=== PATIENT | male | born 1935 | race African-American/Black ===

== ENCOUNTER 2020-07-11 13:23 | Inpatient (IN) | payer MEDICARE, OTHER ==
[~2020-07-11] VITALS: Ht 167.6 cm; Wt 73.9 kg
[2020-07-11] MEDS ORDERED: CEFTRIAXONE 1 G in IV DEXTROSE 5% 50 ML IV ONE (13:45)
[2020-07-11] MEDS ORDERED: DEXAMETHASONE SOD PHOSPHATE 4 MG INJ IV ONE (13:45)
[2020-07-11] MEDS ORDERED: AZITHROMYCIN IV 500 MG in IV DEXTROSE 5% 250 ML IV ONE (13:45)
[2020-07-11 13:55] LABS: ABG SITE LEFT RADIAL
[2020-07-11] MEDS ORDERED: CEFTRIAXONE /D5W 50ML IVPB **ER PYXIS IV ONE (14:06)
[2020-07-11] MEDS ORDERED: AZITHROMYCIN 500 MG VIAL IV ONE (14:06)
[2020-07-11] MEDS ORDERED: DEXAMETHASONE SOD PHOSPHATE 4 MG INJ ONE (14:06)
[2020-07-11 14:07] LABS: BASOPHILS % (AUTO) 0.2 % (0.0-2.0); HEMATOCRIT 33.1 % (36.7-47.1); HEMOGLOBIN 10.4 g/dL (12.5-16.3); LYMPHOCYTES # (AUTO) 0.2 K/uL (20.0-40.0); LYMPHOCYTES % (AUTO) 1.4 % (20.5-51.5); MEAN CORPUSCULAR HEMOGLOBIN 28.2 uug (23.8-33.4); MEAN CORPUSCULAR HGB CONC 31 g/dL (32.5-36.3); MEAN CORPUSCULAR VOLUME 90.2 fL (73.0-96.2); MONOCYTES # (AUTO) 0.6 K/uL (2.0-10.0); MONOCYTES % (AUTO) 4.7 % (0.0-11.0); NEUTROPHILS # (AUTO) 11.9 K/uL (1.8-8.9); NEUTROPHILS % (AUTO) 93.7 % (38.5-71.5); PLATELET COUNT (AUTO) 120 K/uL (152-348); RED BLOOD CELL COUNT(AUTO) 3.67 MIL/uL (4.06-5.63); WHITE BLOOD COUNT (AUTO) 12.8 K/uL (3.6-10.2)
[2020-07-11 14:33] LABS: CHLORIDE 106 mmol/L (98-107); POTASSIUM 4.5 mmol/L (3.5-5.1)
[2020-07-11 14:34] LABS: CARBON DIOXIDE 19 mmol/L (21-32)
[2020-07-11 14:37] LABS: GLUCOSE 126 mg/dL (74-106)
[2020-07-11 14:38] LABS: CREATININE 3.8 mg/dL (0.6-1.3)
[2020-07-11 14:39] LABS: ALANINE AMINOTRANSFERASE 62 U/L (16-63); ALKALINE PHOSPHATASE 77 U/L (50-136); ASPARTATE AMINOTRANSFERASE 53 U/L (15-37); BILIRUBIN,TOTAL 0.9 mg/dL (0.2-1.0)
[2020-07-11 14:40] LABS: LACTATE DEHYDROGENASE 226 U/L (85-227)
[2020-07-11] MEDS ORDERED: MULT-213 PO (14:40)
[2020-07-11] MEDS ORDERED: BISA10SU61 RC (14:40)
[2020-07-11] MEDS ORDERED: MAGN400O6 PO (14:40)
[2020-07-11] MEDS ORDERED: NA P133E RC (14:40)
[2020-07-11] MEDS ORDERED: BISA-79 PO (14:40)
[2020-07-11] MEDS ORDERED: APIX2.5T PO (14:40)
[2020-07-11] MEDS ORDERED: MAG-151 PO (14:40)
[2020-07-11] MEDS ORDERED: FURO40TA5 PO (14:40)
[2020-07-11] MEDS ORDERED: ONDA4TAB5 PO (14:40)
[2020-07-11] MEDS ORDERED: PANT40TA49 PO (14:40)
[2020-07-11] MEDS ORDERED: ACET-2154 PO (14:40)
[2020-07-11] MEDS ORDERED: ASCO500T10 PO (14:40)
[2020-07-11] MEDS ORDERED: CRAN3875 PO (14:40)
[2020-07-11] MEDS ORDERED: SPIR25TA PO (14:40)
[2020-07-11] MEDS ORDERED: FERR325T28 PO (14:40)
[2020-07-11] MEDS ORDERED: [UNRECOGNIZED DRUG - OTHER] PO (14:40)
[2020-07-11] MEDS ORDERED: CHOL10002 PO (14:40)
[2020-07-11 14:41] LABS: UREA NITROGEN, BLOOD 81 mg/dL (7-18)
[2020-07-11] MEDS ORDERED: IV NORMAL SALINE 1000 ML BAG IV ONE (14:45)
[2020-07-11 14:48] LABS: FERRITIN 182 ng/mL (26-388); TOTAL PROTEIN, SERUM 6.5 g/dL (6.4-8.2)
[2020-07-11 15:11] LABS: CREATINE KINASE, TOTAL 266 U/L (39-308)
--- NOTE | 2020-07-11 15:52 | NUR ---
eye balling pt in isolation multiple times. pt moving all extremeties, does not appear to be in resp distress. pt still on non-rebreather, pt on monitor.
--- NOTE | 2020-07-11 15:55 | NUR ---
Dr. Hoff accepted the as icu status. transfer to floor pending on bed availability. clinic supervisor aware.
[2020-07-11] MEDS ORDERED: IV 1/2NS 1000 ML 1,000 ML IV PRN ×2 (16:45→20:33)
[2020-07-11] MEDS ORDERED: HYDROCODONE/APAP 5-325MG TABLET PO PRN (16:45)
[2020-07-11] MEDS ORDERED: Z GUARD REMEDY PASTE 57 GM TUBE TOP PRN (16:45)
[2020-07-11] MEDS ORDERED: ONDANSETRON 4 MG/2 ML VIAL IV PRN (16:45)
[2020-07-11] MEDS ORDERED: MAGNESIUM HYDROXIDE 30 ML LIQUID UDC PO PRN (16:45)
[2020-07-11] MEDS ORDERED: ACETAMINOPHEN 325 MG TABLET PO PRN (16:45)
--- NOTE | 2020-07-11 17:30 | NUR ---
Pt transferred from 3, noted saturation to not improve despite of being on 15L02 via NRB mask and vapotherm at 40L/min at 100% fi02.
[2020-07-11] MEDS ORDERED: NOREPINEPHRINE BITARTRATE 8 MG in IV NORMAL SALINE 242 ML IV PRN (18:00)
[2020-07-11 18:09] LABS: ABG BASE EXCESS -11.4 mmol/L; ABG HCO3 14.1 mmol/L; ABG PCO2 30.1 mmHg (35.0-45.0); ABG PH 7.287 (7.350-7.450); ABG PO2 42.9 mmHg (75.0-100.0); ABG TOTAL HEMOGLOBIN 10.6 G/dL (13.5-18.0); COHb 0.8 % (0.5-1.5); MetHb 0.5 % (0.0-1.5); O2Hb 76.4 % (94.0-97.0); VENT MODE VAPOTHERM
--- NOTE | 2020-07-11 18:20 | NUR ---
Etomidate 20mg given by Dr. Rausch prior to intubation.
--- NOTE | 2020-07-11 18:25 | NUR ---
Pt intubated by Dr. Rausch, ETT size 7.0. Addendum: 07/11/20 at 1855 by MITCHEL ETT tube 25cm at the lip
--- NOTE | 2020-07-11 18:26 | NUR ---
Attached to Vent by RT Wells with vent settings of VT 500, RR 20, PEEP 10 and fi02 100%. Addendum: 07/11/20 at 1843 by MITCHEL RT Thomson also at bedside.
--- NOTE | 2020-07-11 18:30 | NUR ---
PT ORALLY INTUBATED BY WITH A SIZE 7.0 ETT SECURED WITH ANCHOR-FAST APPROX. 24CM AT THE LIP. PT PLACED ON A GAITAN VENT ON SETTINGS GIVEN BY DR. VIGIL. PT IS ON SETTINGS OF A/C 20, VT 500, 100% FIO2, PEEP +10. PT IS TACHYPNEIC, SPO2 63%, RN AND IS AWARE. VENT PARAMETERS AND ALARMS CHECKED, ALARMS ARE AUDIBLE. BVM AT BEDSIDE. VENT PLUGGED INTO RED OUTLET. SPUTUM SPECIMEN COLLECTED. WILL CONTINUE TO MONITOR.
[2020-07-11] MEDS ORDERED: PROPOFOL 100 ML ONE (18:46)
--- NOTE | 2020-07-11 19:00 | NUR ---
Received report from JANEEN Barroso for continuation of care. Patient currently on the ventilator, and seems to be fighting with the vent. Patient restrained to prevent dislodge of ETT, and propofol increased to help sedate patient to promote proper oxygenation.
--- NOTE | 2020-07-11 19:14 | NUR ---
SBAR report given to Sarwat VERNON
[2020-07-11] MEDS ORDERED: ACETAMINOPHEN 325 MG SUPP ONE (20:43)
[2020-07-11] MEDS ORDERED: FUROSEMIDE 40 MG/4 ML VIAL IV ONE (20:45)
[2020-07-11] MEDS ORDERED: ACETAMINOPHEN 650 MG SUPP.RECT RC ONE (20:45)
[2020-07-11] MEDS ORDERED: MORPHINE SULFATE 2 MG/1 ML DISP.SYRIN IV PRN (20:45)
--- NOTE | 2020-07-11 21:03 | NUR ---
Dr. Kilo barnes. Addendum: 07/11/20 at [email or web address] Mota
[2020-07-11] MEDS ORDERED: ENOXAPARIN SODIUM 80 MG/0.8 ML DISP.SYRIN SQ ONE ×2 (21:15→21:28)
[2020-07-11] MEDS ORDERED: FUROSEMIDE 40 MG/4 ML VIAL ONE (21:28)
--- NOTE | 2020-07-11 22:09 | NUR ---
ABG results were provided by RT Arpit. Based on results patients seemed to be getting more acidotic. Dr. Vieira updated with results. Patient resp rate increased to 24.
[2020-07-11 22:17] LABS: ABG BASE EXCESS -13.4 mmol/L; ABG HCO3 15.8 mmol/L; ABG PCO2 50.3 mmHg (35.0-45.0); ABG PH 7.114 (7.350-7.450); ABG PO2 53.2 mmHg (75.0-100.0); ABG SITE LEFT RADIAL; ABG TOTAL HEMOGLOBIN 11.7 G/dL (13.5-18.0); COHb 0.7 % (0.5-1.5); MetHb 0.5 % (0.0-1.5); O2Hb 81.7 % (94.0-97.0); VENT MODE VENT - A/C; VT, ABG 500 mL
--- NOTE | 2020-07-11 22:17 | NUR ---
Dr. Vieira updated with most recent ABG
--- NOTE | 2020-07-11 22:43 | NUR ---
Dr. Mayorga from Medicine updated regarding patient status with new ABG results. Per Dr. Mayorga, patient will need another ABG to be collected 0600 tomorrow.
[2020-07-11] MEDS ORDERED: SODIUM BICARBONATE 8.4% 100 MEQ in IV 1/2NS 1000 ML 1,000 ML IV PRN (23:15)
[2020-07-12] MEDS ORDERED: NOREPINEPHRINE BITARTRATE 4 MG/4 ML VIAL IV ONE ×3 (00:30→06:58)
[2020-07-12] MEDS ORDERED: PROPOFOL 100 ML ONE (00:41)
--- NOTE | 2020-07-12 01:13 | NUR ---
Spoke to Ansley Arango NP regarding patient case. Per Ansley Arango, increase vent rate from 24-26. Observe the patient for about an hour and if patient remains in the same state to start bicarb 2.4 IV drip.
[2020-07-12] MEDS ORDERED: SODIUM BICARBONATE 8.4% 50 MEQ/50 ML DISP.SYRIN IV ONE ×3 (02:19→06:17)
[2020-07-12] MEDS ORDERED: SODIUM BICARBONATE INFANT 5 MEQ/10 ML IV ONE (02:21)
[2020-07-12] MEDS ORDERED: DISP SYRIN IV ONE (02:21)
--- NOTE | 2020-07-12 02:50 | NUR ---
Patient vent settings remain the same, T/V 500, PEEP 15, and rate was increased to 26 per Ansley Arango NP order.
--- NOTE | 2020-07-12 02:50 | NUR ---
Ansley Arango, [employer] SUPERVISOR paged for advice regarding patient condition. Patient saturationn going below 85%. Ansley suggests that if the patient does not progress, he may need to be started on a bicarb drip of 4.2% in D5W and is to be ran at 25ml/hr for 12 hours.
--- NOTE | 2020-07-12 03:50 | NUR ---
Patients blood pressure had a significant drop from 106/54 to 81/48. Levophed titrated up to 1mcg/kg
[2020-07-12] MEDS ORDERED: PROPOFOL 1,000 MG/100 ML BOTTLE IV ONE (06:15)
[2020-07-12] MEDS ORDERED: PANTOPRAZOLE SODIUM 40 MG TABLET.DR PO SCH (07:00)
--- NOTE | 2020-07-12 07:10 | NUR ---
Handoff report given to JANEEN Swenson for continuation of care. Vent settings remain unchanged at T/V 500 PEEP 15 Rate 26. All fluids infusing well.
--- NOTE | 2020-07-12 07:18 | NUR ---
upon assessment patient with no pulse, aware, TOD 07:11
--- NOTE | 2020-07-12 07:42 | NUR ---
main doctor and family (son) notified of patients
--- NOTE | 2020-07-12 07:42 | NUR ---
called [facility] #[id number]
--- NOTE | 2020-07-12 08:17 | NUR ---
[facility] REP. JEREMY CALLED TO VERIFY PT's HEALTH HISTORY INFORMATION. JEREMY CONFIRMED THAT PT IS NOT GOING TO BE [employer]. REFERAL # [id number]. JANEEN ALEJANDRO NOTIFIED.
[2020-07-12] MEDS ORDERED: ASPIRIN 81 MG TAB.CHEW PO SCH (09:00)
--- NOTE | 2020-07-12 09:07 | NUR ---
Dr. Solis to sign certificate
--- NOTE | 2020-07-12 09:28 | NUR ---
patient double bagged
[2020-07-12] MEDS ORDERED: SUCCINYLCHOLINE CHLORIDE 200 MG/10 ML VIAL IV ONE (10:31)
[2020-07-12] MEDS ORDERED: ETOMIDATE 20 MG/10 ML VIAL IV ONE (10:31)
[2020-07-12] MEDS ORDERED: ENOXAPARIN SODIUM 80 MG/0.8 ML DISP.SYRIN SQ SCH (21:00)
== END 2020-07-12 10:32 | disposition expired | DRG 871 ==
LOC: ER 13:23 → ICU 16:40
PROVIDERS: ADMIT Student in an Organized Health Care Education/Training Program; ATTEND Student in an Organized Health Care Education/Training Program
PROC: 5A1935Z Respiratory Ventilation, Less than 24 Consecutive Hours (ICD-10-PCS; principal; 2020-07-11)
PROC: 0BH18EZ Insertion of Endotracheal Airway into Trachea, Via Natural or Artificial Opening Endoscopic (ICD-10-PCS; 2020-07-11)
DX: A41.89 Other specified sepsis (principal); G92 Toxic encephalopathy; I21.A1 Myocardial infarction type 2; J12.89 Other viral pneumonia; J15.9 Unspecified bacterial pneumonia; J96.01 Acute respiratory failure with hypoxia; N17.0 Acute kidney failure with tubular necrosis; U07.1 COVID-19; R65.21 Severe sepsis with septic shock; E44.0 Moderate protein-calorie malnutrition; E87.2 Acidosis; I13.0 Hypertensive heart and chronic kidney disease with heart failure and stage 1 through stage 4 chronic kidney disease, or unspecified chronic kidney disease; I50.32 Chronic diastolic (congestive) heart failure; I48.20 Chronic atrial fibrillation, unspecified; J98.11 Atelectasis; D64.9 Anemia, unspecified; D69.6 Thrombocytopenia, unspecified; I25.10 Atherosclerotic heart disease of native coronary artery without angina pectoris; K21.9 Gastro-esophageal reflux disease without esophagitis; N18.9 Chronic kidney disease, unspecified; Z87.01 Personal history of pneumonia (recurrent); Z79.01 Long term (current) use of anticoagulants; Z95.0 Presence of cardiac pacemaker; R47.02 Dysphasia; F03.90 Unspecified dementia, unspecified severity, without behavioral disturbance, psychotic disturbance, mood disturbance, and anxiety; R74.01 Elevation of levels of liver transaminase levels; K58.9 Irritable bowel syndrome, unspecified; N40.0 Benign prostatic hyperplasia without lower urinary tract symptoms; M19.90 Unspecified osteoarthritis, unspecified site; M62.81 Muscle weakness (generalized); Z68.26 Body mass index [BMI] 26.0-26.9, adult; N50.89 Other specified disorders of the male genital organs
CPT/HCPCS: 36415; 36600; 51702; 70030-TC; 71045; 83605; 83615; 85025; 85730; 86140; 87040; 87070; 87077; 87400; 93005; 94002; A4663; G0378; J0330; J0456; J0696; J1100; J1650; J1940; J3490; J7030; J7050; J7060